=== PATIENT | male | born 1945 | race Two or more races ===

== ENCOUNTER 2021-01-19 10:00 | Inpatient (IN) | payer OTHER ==
[~2021-01-19] VITALS: Ht 167.6 cm; Wt 60.3 kg
[2021-01-24] MEDS ORDERED: ULTRACET PO (12:02)
[2021-01-24] MEDS ORDERED: OMEPRAZOLE20 M1 PO (12:02)
== END 2021-01-24 13:17 | disposition home or self-care (01) | DRG 331 ==
LOC: O/R 01-21 07:13 → SURH 01-21 10:30
PROVIDERS: ADMIT Surgery; ATTEND Surgery
PROC: 07BC4ZX Excision of Pelvis Lymphatic, Percutaneous Endoscopic Approach, Diagnostic (ICD-10-PCS; 2021-01-21)
PROC: 0DTF4ZZ Resection of Right Large Intestine, Percutaneous Endoscopic Approach (ICD-10-PCS; principal; 2021-01-21 10:30)
DX: C18.2 Malignant neoplasm of ascending colon (principal); R59.0 Localized enlarged lymph nodes

== ENCOUNTER 2022-06-03 15:17 | Emergency (ER) | payer OTHER ==
[~2022-06-03] VITALS: Ht 167.6 cm; Wt 68.0 kg
[~2022-06-03 15:17] MED LIST: OMEPRAZOLE20 M1 PO; ULTRACET PO
[2022-06-03] MEDS ORDERED: IRBESARTAN75 MG PO (16:18)
== END 2022-06-03 19:37 | disposition home or self-care (01) ==
LOC: ER 15:17
DX: R10.9 Unspecified abdominal pain (principal); N39.0 Urinary tract infection, site not specified; Z85.038 Personal history of other malignant neoplasm of large intestine; E78.00 Pure hypercholesterolemia, unspecified; E11.9 Type 2 diabetes mellitus without complications; I10 Essential (primary) hypertension; Z91.013 Allergy to seafood

== ENCOUNTER 2022-06-09 12:59 | Inpatient (IN) | payer OTHER ==
[~2022-06-09] VITALS: Ht 152.4 cm; Wt 68.0 kg
[~2022-06-09 12:59] MED LIST changes: +IRBESARTAN75 MG PO
[2022-06-30] MEDS ORDERED: PRILOSEC OTC20 MG PO (12:42)
[2022-06-30] MEDS ORDERED: INTESTINEX680 M1 PO (12:42)
== END 2022-06-30 14:50 | disposition home or self-care (01) | DRG 330 ==
LOC: ER 12:59 → SURG 19:22
PROVIDERS: ADMIT Colon & Rectal Surgery; ATTEND Colon & Rectal Surgery
PROC: BW21ZZZ Computerized Tomography (CT Scan) of Abdomen and Pelvis (ICD-10-PCS; 2022-06-09)
PROC: 02HV33Z Insertion of Infusion Device into Superior Vena Cava, Percutaneous Approach (ICD-10-PCS; 2022-06-10)
PROC: BT4JZZZ Ultrasonography of Kidneys and Bladder (ICD-10-PCS; 2022-06-10)
PROC: BW21YZZ Computerized Tomography (CT Scan) of Abdomen and Pelvis using Other Contrast (ICD-10-PCS; 2022-06-15)
PROC: 0DNW0ZZ Release Peritoneum, Open Approach (ICD-10-PCS; 2022-06-16)
PROC: 0DQV0ZZ Repair Mesentery, Open Approach (ICD-10-PCS; 2022-06-16)
PROC: 0DT80ZZ Resection of Small Intestine, Open Approach (ICD-10-PCS; principal; 2022-06-16 13:00)
PROC: B246ZZZ Ultrasonography of Right and Left Heart (ICD-10-PCS; 2022-06-17)
PROC: 4A12X4Z Monitoring of Cardiac Electrical Activity, External Approach (ICD-10-PCS; 2022-06-18)
DX: K56.50 Intestinal adhesions [bands], unspecified as to partial versus complete obstruction (principal); K40.30 Unilateral inguinal hernia, with obstruction, without gangrene, not specified as recurrent; K46.0 Unspecified abdominal hernia with obstruction, without gangrene; R78.81 Bacteremia; I49.8 Other specified cardiac arrhythmias; D50.0 Iron deficiency anemia secondary to blood loss (chronic); E86.0 Dehydration